=== PATIENT | female | born 1950 | race Two or more races ===

== ENCOUNTER 2023-08-21 16:01 | Emergency (ER) | payer MEDICARE, OTHER ==
[~2023-08-21] VITALS: Ht 160 cm; Wt 76.4 kg
[2023-08-21 16:11] VITALS: TEMP 98.3
[2023-08-21] MEDS ORDERED: LIDOCAINE 5% TRANSDERMAL PATCH TD ONE (16:30)
[2023-08-21 17:16] LABS: APPEARANCE,URINE CLEAR (CLEAR); BILIRUBIN,URINE NEGATIVE (NEGATIVE); COLOR,URINE LIGHT YELLOW (YELLOW); GLUCOSE, URINE (UA) NEGATIVE (NEGATIVE); KETONES,URINE NEGATIVE (NEGATIVE); LEUKOCYTE ESTERASE ,URINE MODERATE (NEGATIVE); NITRATE,URINE NEGATIVE (NEGATIVE); OCCULT BLOOD,URINE NEGATIVE (NEGATIVE); PROTEIN,URINE TRACE mg/dL (NEGATIVE); SPECIFIC GRAVITIY, URINE 1.016 (1.003-1.030); UROBILINOGEN,URINE <=1.0 mg/dL (<=1.0)
[2023-08-21 17:25] LABS: BACTERIA,URINE Few /HPF (None Seen); RBC,URINE 0-2 /HPF (0-2); SQUAMOUS EPITHELIAL CELL,UR Few /LPF (None Seen)
[2023-08-21 17:30] VITALS: BP 119/87; PULSE 89; RESP 17
[2023-08-21] MEDS ORDERED: SULF-261 PO (17:49)
== END 2023-08-21 18:02 | disposition home or self-care (01) ==
LOC: EMS 16:19
DX: S20.212A Contusion of left front wall of thorax, initial encounter (principal); N30.90 Cystitis, unspecified without hematuria; M19.90 Unspecified osteoarthritis, unspecified site; E78.00 Pure hypercholesterolemia, unspecified; I10 Essential (primary) hypertension; F17.210 Nicotine dependence, cigarettes, uncomplicated; Z88.0 Allergy status to penicillin; Z91.013 Allergy to seafood; Z98.890 Other specified postprocedural states; W06.XXXA Fall from bed, initial encounter; Y93.89 Activity, other specified; Y92.89 Other specified places as the place of occurrence of the external cause; Y99.8 Other external cause status
CPT/HCPCS: 71046; 81001; 87086; 87186; 99284

== ENCOUNTER 2024-09-25 15:09 | Emergency (ER) | payer MEDICARE, OTHER ==
[~2024-09-25] VITALS: Ht 157.5 cm; Wt 72.7 kg
[~2024-09-25 15:09] MED LIST: SULF-261 PO
[2024-09-25 15:16] VITALS: TEMP 98.2
[2024-09-25] MEDS ORDERED: NITR-166 PO (15:26)
[2024-09-25] MEDS ORDERED: LOSA-382 PO (15:26)
[2024-09-25] MEDS ORDERED: FLUT16SP NASAL (15:26)
[2024-09-25] MEDS ORDERED: MIRA25TA5 PO (15:26)
[2024-09-25] MEDS ORDERED: OMEP20 PO (15:26)
[2024-09-25] MEDS ORDERED: CARB50DR OU (15:26)
[2024-09-25] MEDS ORDERED: ONDA-104 PO (15:26)
[2024-09-25] MEDS ORDERED: GABA-1201 PO (15:26)
[2024-09-25] MEDS ORDERED: KETO5DRO82 OU (15:26)
[2024-09-25] MEDS ORDERED: ATOR20TA PO (15:26)
[2024-09-25] MEDS ORDERED: METH2.5T47 PO (15:26)
[2024-09-25] MEDS ORDERED: FOLI-130 PO (15:26)
[2024-09-25] MEDS ORDERED: ESTR-95 PO (15:26)
[2024-09-25] MEDS ORDERED: SUCR1TAB2 PO (15:26)
[2024-09-25] MEDS ORDERED: HYDR30CR3 TP (15:26)
[2024-09-25] MEDS ORDERED: GABA-1181 PO (15:26)
[2024-09-25] MEDS ORDERED: SEMA3TAB4 PEG (15:26)
[2024-09-25] MEDS ORDERED: LIFI1DRO OU (15:26)
[2024-09-25] MEDS ORDERED: DULO-113 PO (15:26)
[2024-09-25] MEDS ORDERED: METF-1211 PO (15:26)
[2024-09-25] MEDS ORDERED: SULF-261 PO (15:26)
[2024-09-25] MEDS ORDERED: FLUT1AER IH (15:26)
[2024-09-25] MEDS ORDERED: ALEN35TA41 PO (15:26)
[2024-09-25] MEDS ORDERED: FAMO20TA8 PO (15:26)
[2024-09-25] MEDS ORDERED: 0.9% SODIUM CHLORIDE 10 ML SYRINGE IVP PRN (18:15)
[2024-09-25] MEDS ORDERED: ALBU18HF12 IH (18:18)
[2024-09-25] MEDS ORDERED: METF-446 PO (18:18)
[2024-09-25] MEDS ORDERED: OMEP40CA21 PO (18:18)
[2024-09-25] MEDS ORDERED: ATOR10TA69 PO (18:18)
[2024-09-25] MEDS ORDERED: GABA-1404 PO (18:18)
[2024-09-25] MEDS ORDERED: ESTR42.510 VG (18:18)
[2024-09-25] MEDS ORDERED: MECL-302 PO (18:18)
[2024-09-25] MEDS ORDERED: NITR-75 PO (18:18)
[2024-09-25] MEDS ORDERED: LOSA1TAB37 PO (18:18)
[2024-09-25] MEDS ORDERED: SEMA7TAB2 PO (18:18)
[2024-09-25] MEDS ORDERED: EMPA10TA3 PO (18:18)
[2024-09-25 18:38] LABS: BASOPHILS % (AUTO) 0.7 % (0.0-2.0); HEMATOCRIT 33.5 % (36-46); HEMOGLOBIN 10.6 g/dL (12.0-16.0); LYMPHOCYTES # (AUTO) 1.5 K/uL (1.0-4.8); LYMPHOCYTES % (AUTO) 12.9 % (22.0-44.0); MEAN CORPUSCULAR HGB CONC 31.7 G/dL (31.0-37.0); MEAN CORPUSCULAR VOLUME 85 fL (80-100); MONOCYTES # (AUTO) 0.7 K/uL (0.1-1.0); MONOCYTES % (AUTO) 5.8 % (2.0-9.0); NEUTROPHILS # (AUTO) 9.2 K/uL (1.8-7.7); NEUTROPHILS % (AUTO) 79.6 % (40.0-70.0); PLATELET COUNT (AUTO) 307 K/uL (150-450); RED BLOOD CELL COUNT(AUTO) 3.93 MIL/uL (4.00-5.20); WHITE BLOOD COUNT (AUTO) 11.5 K/uL (4.5-11.0)
[2024-09-25 18:43] LABS: ANION GAP 5 mmol/L (8-16); CALCIUM, TOTAL 8.8 mg/dL (8.8-10.5); CARBON DIOXIDE 32 mmol/L (22-29); CHLORIDE 97 mmol/L (98-107); CREATININE 0.95 mg/dL (0.60-1.30); GLOMERULAR FILTR. RATE CALC 58 mL/min (>60); GLUCOSE,RANDOM 109 mg/dL (70-110); POTASSIUM 4.4 mmol/L (3.5-5.1); SODIUM SERUM 134 mmol/L (136-145); UREA NITROGEN, BLOOD 18 mg/dL (7-18)
[2024-09-25 18:44] LABS: PROTHROMBIN TIME 10.9 SEC (9.4-11.6)
[2024-09-25 18:51] LABS: COVID AG,FIA SOURCE NASAL SWAB
[2024-09-25 18:52] LABS: ALANINE AMINOTRANSFERASE 21 U/L (12-78); ALBUMIN 2.7 g/dL (3.4-5.0); ALKALINE PHOSPHATASE 127 U/L (46-116); ASPARTATE AMINOTRANSFERASE 21 U/L (15-37); BILIRUBIN,TOTAL 0.2 mg/dL (0.1-1.0); LACTIC ACID 1.6 mmol/L (0.4-2.0); TOTAL PROTEIN, SERUM 6.9 g/dL (6.4-8.2)
[2024-09-25 18:53] LABS: APPEARANCE,URINE HAZY (CLEAR); BILIRUBIN,URINE NEGATIVE (NEGATIVE); COLOR,URINE LIGHT YELLOW (YELLOW); GLUCOSE, URINE (UA) NEGATIVE (NEGATIVE); KETONES,URINE NEGATIVE (NEGATIVE); LEUKOCYTE ESTERASE ,URINE LARGE (NEGATIVE); NITRATE,URINE NEGATIVE (NEGATIVE); OCCULT BLOOD,URINE NEGATIVE (NEGATIVE); PH,URINE 6.5 (5.0-8.0); PROTEIN,URINE NEGATIVE (NEGATIVE); SPECIFIC GRAVITIY, URINE 1.011 (1.003-1.030); UROBILINOGEN,URINE <=1.0 mg/dL (<=1.0)
[2024-09-25 18:54] LABS: TROPONIN I-HIGH SENSITIVITY 56 ng/L (<51)
[2024-09-25 19:02] LABS: B-TYPE NATRIURETIC PEPTIDE 18 pg/mL (0-100)
[2024-09-25 19:03] LABS: BACTERIA,URINE Many /HPF (None Seen); RBC,URINE 0-2 /HPF (0-2); SQUAMOUS EPITHELIAL CELL,UR Moderate /LPF (None Seen); WBC,URINE 51-100 /HPF (0-5)
[2024-09-25] MEDS: SODIUM CHLORIDE 0.9% 2,200 ML IV ONE (19:10)
[2024-09-25] MEDS: CefTRIAXone 1 GM/DEXTROSE 50 ML IV ONE (19:10)
[2024-09-25 19:11] LABS: SARS-COV2 (COVID) ANTIGEN,FIA Negative (Negative)
[2024-09-25 19:17] LABS: INFLUENZA TYPE A NEGATIVE FOR TYPE A (NEGATIVE); INFLUENZA TYPE B NEGATIVE FOR TYPE B (NEGATIVE)
[2024-09-25 19:41] VITALS: BP 129/64; PULSE 78; RESP 17; O2SAT 95
[2024-09-25 20:16] LABS: TROPONIN I-HIGH SENSITIVITY 56 ng/L (<51)
== END 2024-09-25 21:30 | disposition short-term general hospital (02) ==
LOC: EMS 15:09
DX: N39.0 Urinary tract infection, site not specified (principal); R53.1 Weakness; R53.83 Other fatigue; R79.89 Other specified abnormal findings of blood chemistry; I10 Essential (primary) hypertension; E78.00 Pure hypercholesterolemia, unspecified; F17.210 Nicotine dependence, cigarettes, uncomplicated; Z79.51 Long term (current) use of inhaled steroids; Z79.84 Long term (current) use of oral hypoglycemic drugs; Z88.0 Allergy status to penicillin; Z79.899 Other long term (current) drug therapy; Z20.822 Contact with and (suspected) exposure to COVID-19
CPT/HCPCS: 99291; 96365; 71045; 87426; 80048; 80076; 81001; 83605; 83880; 84484; 85025; 85610; 87040; 87077; 87086; 87804; 82962; 93005; 84145; 36415; J0696; J7030; 87186